=== PATIENT | male | born 1990 | race African-American/Black ===

== ENCOUNTER 2020-11-01 10:10 | Outpatient (CLI) | payer OTHER ==
[2020-11-01 21:40] LABS: SARS-CoV-2 MS2 Positive; SARS-CoV-2 N Gene Negative; SARS-CoV-2 S Gene Negative; SARS-CoV-2 by NAA Not Detected (NotDetected); SARS-CoV-2 orf1ab Negative
== END 2020-11-01 10:11 | disposition home or self-care (01) ==
LOC: LABBT 10:10
PROVIDERS: ATTEND Internal Medicine
DX: Z20.828 Contact with and (suspected) exposure to other viral communicable diseases (principal)
CPT/HCPCS: 87635; U0003

== ENCOUNTER 2020-11-05 08:23 | Outpatient (CLI) | payer OTHER ==
--- NOTE | 2020-11-05 09:46 | RAD ---
Upper GI air contrast HISTORY: Upper abdomen pain. Chest pain. FINDINGS: [employer] Department radiograph shows nonspecific bowel gas pattern. Oval eggshell calcification projectin g over the left upper quadrant correlates with the splenic calcification on prior CT. Air contrast evaluation shows no evidence of esophageal obstruction. A very small portion of the johnathon keily fundus extends above the level of the diaphragm. Stomach has a normal anatomic appearance. Duodenum is unremarkable. A large amount of contrast from the stomach returned into and throughout the length of the esophagus. There was diminished secondary peristalsis of the esophagus. IMPRESSION : Large amount of gastroesophageal reflux. Only minimal hiatal hernia.
== END 2020-11-05 08:24 | disposition home or self-care (01) ==
LOC: RAD 08:23
PROVIDERS: ATTEND Internal Medicine
DX: R10.12 Left upper quadrant pain (principal); R07.9 Chest pain, unspecified; K21.9 Gastro-esophageal reflux disease without esophagitis; K44.9 Diaphragmatic hernia without obstruction or gangrene
CPT/HCPCS: 74246

== ENCOUNTER 2022-04-25 21:46 | Emergency (ER) | payer SELFPAY ==
[2022-04-25] MEDS ORDERED: Ketorolac Tromethamine 30 MG/ML VIAL ONE (22:00)
== END 2022-04-25 22:24 | disposition home or self-care (01) ==
LOC: ERS 21:46
DX: M54.50 Low back pain, unspecified (principal); M54.6 Pain in thoracic spine; K21.9 Gastro-esophageal reflux disease without esophagitis
CPT/HCPCS: 96372; 99283; J1885

== ENCOUNTER 2022-07-13 21:25 | Emergency (ER) | payer BC ==
[2022-07-13 22:01] LABS: #Basophils 0.1 thou/uL (0.0-0.2); #Lymphocytes 4.1 thou/uL (1.20-3.40); #Monocytes 0.9 thou/uL (0.11-0.59); #Neutrophils 6.8 thou/uL (1.40-6.50); %Basophils 0.5 % (0.0-1.0); %Eosinophils 0.3 % (0.0-10.0); %Lymphocytes 34.6 % (21.0-51.0); %Monocytes 7.5 % (0.0-10.0); %Neutrophils 57.1 % (42.0-75.0); Mean Corpuscular HGB CONC 34.4 g/dL (32.0-36.0); Mean Corpuscular Hemoglobin 32.7 pg (27.0-31.0); Mean Corpuscular Volume 95.1 fL (78.0-98.0); Mean Platelet Volume 7.2 fL (7.4-10.4); Platelet Count 352 thou/uL (130-400); RBC Distribution Width 11.3 % (11.5-14.5); Red Blood Cell (RBC) Count 4.89 mill/uL (4.70-6.10); White Blood Cell (WBC) Count 11.9 thou/uL (4.8-10.8)
[2022-07-13 22:18] LABS: ALT (SGPT) 30 U/L (8-55); AST (SGOT) 20 U/L (5-34); Albumin 4.8 g/dL (3.5-5.0); Alkaline Phosphatase 60 U/L (40-110); Anion Gap 19 mmol/L (10-20); BUN (Urea Nitrogen) 9 mg/dL (8.9-20.6); Calc. Creatinine Clearance 0 mL/min (70-130); Calcium 9.5 mg/dL (7.8-10.44); Carbon Dioxide 22 mmol/L (22-29); Chloride 102 mmol/L (98-107); Estimated GFR 90; Globulin 3.7 g/dL (2.4-3.5); Glucose 103 mg/dL (70-105); Lipase 17 U/L (8-78); Potassium 3.6 mmol/L (3.5-5.1); Protein, Total 8.5 g/dL (6.0-8.3); Sodium 139 mmol/L (136-145)
== END 2022-07-13 23:15 | disposition home or self-care (01) ==
LOC: ERS 21:25
DX: R07.89 Other chest pain (principal); K21.9 Gastro-esophageal reflux disease without esophagitis; Z79.899 Other long term (current) drug therapy
CPT/HCPCS: 36415; 71045; 80053; 83690; 84484; 85025; 93005